=== PATIENT | male | born 1980 | race Caucasian/White ===

== ENCOUNTER → 2018-08-28 | Emergency (ER) | payer OTHER ==
[~2018-08-28] VITALS: Ht 172.7 cm; Wt 99.8 kg
[~2018-08-28] MED LIST: ACHD5005 PO; ESCT10T PO; KETOROLAC 30 MG/ML VIAL IVP ONE
[2018-08-28 17:18] LABS: BASOPHILS % (AUTO) 0 % (0-10); EOSINOPHILS # (AUTO) 0.1 10^3/uL (0.0-0.3); EOSINOPHILS % (AUTO) 1 % (0-10); HEMATOCRIT 43 % (40-54); HEMOGLOBIN 16.2 G/DL (13.3-17.7); LYMPHOCYTES # (AUTO) 1.7 X 10^3 (1.0-4.0); LYMPHOCYTES % (AUTO) 25 % (12-44); MEAN CORPUSCULAR HEMOGLOBIN 31 PG (25-34); MEAN CORPUSCULAR HGB CONC 38 G/DL (32-36); MEAN CORPUSCULAR VOLUME 81 FL (80-99); MEAN PLATELET VOLUME 9.7 FL (7.4-10.4); MONOCYTES # (AUTO) 0.9 X 10^3 (0.0-1.0); MONOCYTES % (AUTO) 12 % (0-12); NEUTROPHILS # (AUTO) 4.2 X 10^3 (1.8-7.8); NEUTROPHILS % (AUTO) 61 % (42-75); PLATELET COUNT 255 10^3/uL (130-400); RED BLOOD COUNT 5.24 10^6/uL (4.35-5.85); RED CELL DISTRIBUTION WIDTH 13.5 % (10.0-14.5); WHITE BLOOD COUNT 6.9 10^3/uL (4.3-11.0)
[2018-08-28 17:37] LABS: ALANINE AMINOTRANSFERASE 62 U/L (0-55); ALBUMIN 4.6 GM/DL (3.2-4.5); ALKALINE PHOSPHATASE 49 U/L (40-136); BUN/CREATININE RATIO 13; CALCIUM 9.6 MG/DL (8.5-10.1); CARBON DIOXIDE 24 MMOL/L (21-32); CHLORIDE 103 MMOL/L (98-107); GFR ESTIMATED > 60; GLUCOSE 85 MG/DL (70-105); POTASSIUM 3.8 MMOL/L (3.6-5.0); SODIUM 140 MMOL/L (135-145); TOTAL PROTEIN 7.4 GM/DL (6.4-8.2)
--- NOTE | 2018-08-28 17:41 | ED Lower Extremity ---
General Chief Complaint: General Problems/Pain Stated Complaint: LEGS HURTING,BOTH LEGS Nursing Triage Note: PT AMB TO ROOM #10 W/O DIFFICULTY. A&OX4. CO BILAT LOWER EXTREMITY PAIN AND DIZZINESS. PT REPORTS THE NH IN [place] REPORTS HE HAS "ENLARGED VEINS IN HIS LOWER EXTREMITIES." PT REPORTS INCREASING PAIN THROUGH INNER GROIN, RUNNING BEHIND KNEES AND DOWN TO FEET FOR PAST WK. PT REPORTS HE WAS AT WORK ON THIS DAY WHEN HE BEGAN TO FEEL DIZZY AND LH. REPORTS TO HAVE TAKEN IBUPROFEN FOR PAIN AND INFLAMMATION. UPON INSPECTED INNER THIGH VERICOSE VEINS NOTED TO BE INGORGED. Nursing Sepsis Screen: No Definite Risk Source: patient Exam Limitations: no limitations History of Present Illness Date Seen by Provider: Aug 28, 2018 Time Seen by Provider: 16:36 Initial Comments Patient present to the emergency room with painful varicose veins in his lower extremities bilaterally. He reports that he is a patient of the NH in [place] and has been seen for his varicose veins in the past and was told that he needed to wear compression stockings and elevate his legs as much as possible ( 2 years ago). He recently started a job at [employer] where he is on his feet all day and reports this is causing pain to his varicose veins and he has had episodes of dizziness today. Onset: other Pain/Injury Location: bilateral leg, bilateral knee, bilateral thigh Modifying Factors: Improves With Other (standing increases pain.) Allergies and Home Medications Allergies Coded Allergies: No Known Drug Allergies (Unverified , 08/28/18) Home Medications Escitalopram Oxalate 10 Mg Tablet, 1 EACH PO DAILY, (Reported) Hydrocodone Bit/Acetaminophen 1 Tab Tab, 1-2 EACH PO Q6H PRN for PAIN-MODERATE Prescribed by: ARIELA SMITH on 08/28/18 4543 Patient Home Medication List Home Medication List Reviewed: Yes Review of Systems Constitutional: see HPI; No chills; dizziness; No fever Musculoskeletal: see HPI, other All Other Systems Reviewed Negative Unless Noted: Yes Past [place] Hx Past Med/Social Hx: Reviewed Nursing Past Med/Soc Hx Patient Social History Alcohol Use: Denies Use Recreational Drug Use: No Smoking Status: Never a Smoker 2nd Hand Smoke Exposure: No Recent Foreign Travel: No Contact w/Someone Who Travel: No Recent Infectious Disease Expo: No Recent Hopitalizations: No Seasonal Allergies Seasonal Allergies: No Past Medical History Surgeries: No Respiratory: No Cardiac: No Neurological: No Genitourinary: No Gastrointestinal: No Musculoskeletal: No Endocrine: No HEENT: No Cancer: No Psychosocial: Yes Anxiety Integumentary: No Blood Disorders: No Family Medical History Reviewed Nursing Family Hx Physical Exam Vital Signs Vital Signs - First Documented 08/28/18 16:26 Temp 97.7 Pulse 91 Resp 16 B/P (MAP) 159/90 (113) Pulse Ox 97 O2 Delivery Room Air Capillary Refill : Less Than 3 Seconds Height, Weight, BMI Height: 5'8.00" Weight: 220lbs. oz. 99.213011cp; BMI Method:Stated General Appearance: WD/WN, no apparent distress Neck: non-tender, full range of motion, supple, normal inspection Cardiovascular: normal peripheral pulses, regular rate, rhythm, no edema, no gallop, no JVD, no murmur Respiratory: chest non-tender, lungs clear, normal breath sounds, no respiratory distress, no accessory muscle use Legs: bilateral leg soft tissue tenderness, bilateral leg other (variscose veins bilaterally. Legs are warm to the touch but no focal area of erythema or tenderness. No calf tenderness) Neurologic/Tendon: normal sensation, normal motor functions, normal tendon functions, responds to pain Neurologic/Psychiatric: alert, normal mood/affect, oriented x 3 Normal distal pulses and capillary refill. Progress/Results/Core Measures Results/Orders Lab Results Laboratory Tests Test 08/28/18 16:45 08/28/18 17:55 Range/Units White Blood Count 6.9 4.3-11.0 10^3/uL Red Blood Count 5.24 4.35-5.85 10^6/uL Hemoglobin 16.2 13.3-17.7 G/DL Hematocrit 43 40-54 % Mean Corpuscular Volume 81 80-99 FL Mean Corpuscular Hemoglobin 31 25-34 PG Mean Corpuscular Hemoglobin Concent 38 H 32-36 G/DL Red Cell Distribution Width 13.5 10.0-14.5 % Platelet Count 255 130-400 10^3/uL Mean Platelet Volume 9.7 7.4-10.4 FL Neutrophils (%) (Auto) 61 42-75 % Lymphocytes (%) (Auto) 25 12-44 % Monocytes (%) (Auto) 12 0-12 % Eosinophils (%) (Auto) 1 0-10 % Basophils (%) (Auto) 0 0-10 % Neutrophils # (Auto) 4.2 1.8-7.8 X 10^3 Lymphocytes # (Auto) 1.7 1.0-4.0 X 10^3 Monocytes # (Auto) 0.9 0.0-1.0 X 10^3 Eosinophils # (Auto) 0.1 0.0-0.3 10^3/uL Basophils # (Auto) 0.0 0.0-0.1 10^3/uL D-Dimer 0.40 0.00-0.49 UG/ML Sodium Level 140 135-145 MMOL/L Potassium Level 3.8 3.6-5.0 MMOL/L Chloride Level 103 98-107 MMOL/L Carbon Dioxide Level 24 21-32 MMOL/L Anion Gap 13 5-14 MMOL/L Blood Urea Nitrogen 13 7-18 MG/DL Creatinine 1.00 0.60-1.30 MG/DL Estimat Glomerular Filtration Rate > 60 BUN/Creatinine Ratio 13 Glucose Level 85 70-105 MG/DL Calcium Level 9.6 8.5-10.1 MG/DL Corrected Calcium 8.5-10.1 MG/DL Total Bilirubin 1.0 0.1-1.0 MG/DL Aspartate Amino Transf (AST/SGOT) 29 5-34 U/L Alanine Aminotransferase (ALT/SGPT) 62 H 0-55 U/L Alkaline Phosphatase 49 40-136 U/L B-Type Natriuretic Peptide < 10.0 <100.0 PG/ML Total Protein 7.4 6.4-8.2 GM/DL Albumin 4.6 H 3.2-4.5 GM/DL Erythrocyte Sedimentation Rate 1 0-15 MM/HR My Orders Orders - ARIELA SMITH Cbc With Automated Diff (08/28/18 16:31) Ekg Tracing (08/28/18 16:31) Comprehensive Metabolic Panel (08/28/18 16:31) Saline Lock/Iv-Start (08/28/18 16:31) Fibrin Degradation Products (08/28/18 16:31) BNP (08/28/18 16:33) Erythrocyte Sedimentation Rate (08/28/18 17:43) Ketorolac Injection (Toradol Injection) (08/28/18 18:30) Iv Push Balance Screwhead Polisher Ed (08/28/18 ) Medications Given in ED Vital Signs/I&O 08/28/18 08/28/18 16:26 19:05 Temp 97.7 97.7 Pulse 91 79 Resp 16 16 B/P (MAP) 159/90 (113) 132/104 (113) Pulse Ox 97 97 O2 Delivery Room Air Room Air Blood Pressure Mean: 113 Progress Progress Note : Time: 18:10 Progress Note I have seen and evaluated the patient. I have informed the patient of normal laboratory findings and ekg. I had initially ordered US and given the laboratory findings I have discussed with the patient and declines imaging studies at this time. He agrees with plan of care, plans for discharge, return precautions were given. Voices no questions or concerns. EKG : EKG Time: 16:50 Rate: 76 Rhythm: Normal Sinus Intervals: Normal ECG Comparisson: No Previous ECG Available ECG Impression: Normal Departure Impression Primary Impression: Varicose veins of both lower extremities Disposition: 01 HOME, SELF-CARE Condition: Stable/Unchanged Departure-Patient Inst. Decision time for Depature: 18:17 Referrals: NO,LOCAL PHYSICIAN (PCP) Primary Care Physician SONIA BROWN MD Patient Instructions: Varicose Veins (DC) Add. Discharge Instructions: Take medications as directed. Ibuprofen and Tylenol as directed by the bottle for pain. Rest, ice to the sore areas, elevation, and wearing the compression stockings that were provided for comfort. Follow-up with Dr. Brown or the NH for further evaluation and possible treatment, the need for a vascular surgeon might be necessary. Return back to the emergency room for any worsening symptoms or concerns as needed. All discharge instructions reviewed with patient and/or family. Voiced understanding. Scripts Hydrocodone Bit/Acetaminophen (Hydrocodone/Acetaminophen 5/325mg Tablet) 1 Tab Tab 1-2 EACH PO Q6H PRN for PAIN-MODERATE MDD 10, #14 TAB Prov: ARIELA SMITH 08/28/18 Work/School Note: Work Release Form Date Seen in the Emergency Department: Aug 28, 2018 Return to Work: Aug 31, 2018 Restrictions: No Restrictions ARIELA SMITH Aug 28, 2018 17:41
[2018-08-28 19:05] VITALS: BP 132/104
== END | disposition home or self-care (01) ==
LOC: EDUNIT# 16:11 → ER 16:13
DX: I83.93 Asymptomatic varicose veins of bilateral lower extremities (principal); F41.9 Anxiety disorder, unspecified
CPT/HCPCS: 36415; 80053; 83880; 85025; 85379; 85652; 93005; 96374